=== PATIENT | female | born 1990 | race Asian ===

== ENCOUNTER 2017-03-28 06:26 | Day surgery (SDC) | payer OTHER ==
[~2017-03-28] VITALS: Ht 167.6 cm; Wt 63.5 kg
[2017-03-28] MEDS ORDERED: LIDOCAINE 2% 100 MG/5 ML UJET TP ONE (09:23)
[2017-03-28] MEDS ORDERED: MIDAZOLAM 2 MG/2 ML VIAL ONE (09:38)
[2017-03-28] MEDS ORDERED: fentaNYL 0.05 MG/ML VIAL ONE (09:38)
== END 2017-03-28 10:55 | disposition home or self-care (01) ==
LOC: MDS 06:26 → MMU 06:26 → MDS 10:55
PROVIDERS: ATTEND Internal Medicine Gastroenterology
DX: K64.4 Residual hemorrhoidal skin tags (principal); J45.909 Unspecified asthma, uncomplicated; F32.9 Major depressive disorder, single episode, unspecified; F41.9 Anxiety disorder, unspecified; Z72.89 Other problems related to lifestyle; Z87.891 Personal history of nicotine dependence; Z79.899 Other long term (current) drug therapy; Z88.1 Allergy status to other antibiotic agents; Z88.8 Allergy status to other drugs, medicaments and biological substances; Z80.0 Family history of malignant neoplasm of digestive organs
CPT/HCPCS: 45378; J2250; J3010; J7030